=== PATIENT | male | born 1980 | race Caucasian/White ===

== ENCOUNTER 2024-01-25 09:05 | Emergency (ER) | payer MEDICAID ==
[~2024-01-25] VITALS: Ht 170.2 cm; Wt 90.2 kg
[2024-01-25 09:07] VITALS: BP 136/85; PULSE 80; RESP 18; O2SAT 95
[2024-01-25] MEDS ORDERED: ALBU8HFA INH (11:09)
[2024-01-25 11:35] VITALS: TEMP 97.8
== END 2024-01-25 11:36 | disposition home or self-care (01) ==
LOC: ER 09:06
DX: J22 Unspecified acute lower respiratory infection (principal); R50.9 Fever, unspecified; Z20.822 Contact with and (suspected) exposure to COVID-19
CPT/HCPCS: 36415; 71045; 87811; 99284